=== PATIENT | male | born 1960 | race Caucasian/White ===

== ENCOUNTER 2019-12-27 14:41 | Emergency (ER) | payer SELFPAY ==
[~2019-12-27] VITALS: Ht 188 cm; Wt 127.3 kg
[2019-12-27 15:00] VITALS: BP 159/101
--- NOTE | 2019-12-27 15:10 | NUR ---
Pt. seen, evaluated, and discharged by PA prior to triage and RN intervention.
== END 2019-12-27 15:10 | disposition home or self-care (01) ==
LOC: ER 14:42
DX: U07.1 COVID-19 (principal)
CPT/HCPCS: 36415; 87635; 99283; C9803

== ENCOUNTER 2022-01-29 12:40 | Inpatient (IN) | payer OTHER ==
[~2022-01-29] VITALS: Ht 188 cm; Wt 134.0 kg
[2022-01-29 13:03] LABS: BASOPHILS # (AUTO) 0.1 X10'3 (0-0.2); BASOPHILS % (AUTO) 0.5 % (0-1); EOSINOPHILS # (AUTO) 0.1 X10'3 (0-0.9); EOSINOPHILS % (AUTO) 0.6 % (0-6); HEMATOCRIT 49.7 % (42.0-52.0); HEMOGLOBIN 16.7 g/dl (14.0-17.9); LYMPHOCYTES # (AUTO) 2.3 X10'3 (1.1-4.8); LYMPHOCYTES % (AUTO) 19.9 % (21-51); MEAN CORPUSCULAR HEMOGLOBIN 28.8 PG (27.0-31.0); MEAN CORPUSCULAR HGB CONC 33.5 g/dL (33.0-36.5); MEAN CORPUSCULAR VOLUME 86.1 FL (78-98); MEAN PLATELET VOLUME 8.8 FL (7.4-10.4); MONOCYTES # (AUTO) 1.1 X10'3 (0-0.9); MONOCYTES % (AUTO) 8.9 % (2-12); NEUTROPHILS # (AUTO) 8.3 X10'3 (1.8-7.7); NEUTROPHILS % (AUTO) 70.1 % (42-75); PLATELET COUNT 199 X10'3 (140-440); RED BLOOD COUNT 5.78 X10'6 (4.70-6.10); RED CELL DISTRIBUTION WIDTH 13.7 % (11.5-14.5); WHITE BLOOD COUNT 11.8 X10'3 (4.5-11.0)
--- NOTE | 2022-01-29 13:44 | NUR ---
Lab called with critical lab lenin Olivas
[2022-01-29 14:01] LABS: ALANINE AMINOTRANSFERASE 46 U/L (12-78); ALBUMIN 3.7 G/DL (3.4-5.0); ALBUMIN/GLOBULIN RATIO 0.9 (1.1-1.5); ALKALINE PHOSPHATASE 94 IU/L (46-116); ANION GAP 11 (8-16); ASPARTATE AMINO TRANSFERASE 27 U/L (10-37); BILIRUBIN,TOTAL 0.5 MG/DL (0.1-1.0); BLOOD UREA NITROGEN 16 MG/DL (7-18); BUN/CREATININE RATIO 15.8 (5.4-32.0); CALCIUM 8.5 MG/DL (8.5-10.1); CHLORIDE 100 MMOL/L (99-107); CREATININE 1.01 MG/DL (0.60-1.10); GLUCOSE 227 MG/DL (70-104); MAGNESIUM 2.2 MG/DL (1.5-2.4); POTASSIUM 3.9 MMOL/L (3.5-5.1); SODIUM 136 MMOL/L (135-145); TOTAL CARBON DIOXIDE 24.9 MMOL/L (24-32); TOTAL PROTEIN 7.6 G/DL (6.4-8.2); eGFR 75 ML/MIN
[2022-01-29] MEDS ORDERED: nitroGLYCERIN 0.4mg SUBLingual tab SL PRN (14:10)
[2022-01-29] MEDS ORDERED: metoprolol tartrate 1mg/ml inj IV ONE (14:15)
[2022-01-29] MEDS ORDERED: nitroGLYCERIN 0.4mg/hour patch TD ONE (14:15)
[2022-01-29] MEDS ORDERED: metoprolol tartrate 50mg tablet PO ONE (14:15)
[2022-01-29 15:18] LABS: D-DIMER < 0.19 MG/L FEU (0-0.50)
[2022-01-29] MEDS ORDERED: labetalol 20mg/4ml (5mg/ml) syringe IV ONE (15:45)
[2022-01-29] MEDS ORDERED: NO HOME MEDS (16:51)
[2022-01-29] MEDS ORDERED: PERFLUTREN PROTEIN-A MICROSPHR (Optison) 0.22 MG/ML 3ML VIAL IV ONE (17:10)
[2022-01-29] MEDS ORDERED: magnesium 4gm in 100ml NS 100 ML IV PRN (17:10)
[2022-01-29] MEDS ORDERED: metoprolol tartrate 1mg/ml inj IV PRN (17:10)
[2022-01-29] MEDS ORDERED: potassium Cl 40MEQ/1/2NS 520ml 520 ML IV PRN (17:10)
[2022-01-29] MEDS ORDERED: aminophylline 250mg/10ml inj. IV PRN (17:10)
[2022-01-29] MEDS ORDERED: regadenoson 0.4mg/5ml syringe IV PRN (17:10)
[2022-01-29] MEDS ORDERED: potassium Cl 20 mEq SR tablet PO PRN ×2 (17:10)
[2022-01-29] MEDS ORDERED: ondansetron/PF 4mg/2ml inj IV PRN (17:10)
[2022-01-29] MEDS ORDERED: morphine 2 MG/ML inj. syringe IV PRN ×2 (17:10)
[2022-01-29] MEDS ORDERED: magnesium Cl slow-release 64mg tablet PO PRN (17:10)
[2022-01-29] MEDS ORDERED: mag hydrox/Alum hydrox/simeth 30ml oral suspension PO PRN (17:10)
[2022-01-29] MEDS ORDERED: magnesium hydroxide 30ml (MOM) UD suspension PO PRN (17:10)
[2022-01-29] MEDS: normal saline 1000ml 1,000 ML IV SCH (17:25)
[2022-01-29] MEDS ORDERED: heparin 10,000 units/1 ML INJ IV ONE ×2 (17:25→18:10)
[2022-01-29 18:01] LABS: URINE AMPHETAMINE SCREEN NEGATIVE (Neg); URINE BARBITUATE SCREEN NEGATIVE (Neg); URINE BENZODIAZEPINES SCREEN NEGATIVE (Neg); URINE CANNABINOID SCREEN NEGATIVE (Neg); URINE COCAINE SCREEN NEGATIVE (Neg); URINE METHADONE SCREEN NEGATIVE (Neg); URINE OPIATE SCREEN NEGATIVE (Neg); URINE PHENCYCLIDINE SCREEN NEGATIVE (Neg)
[2022-01-29] MEDS: heparin 25,000 UNIT/250ml bag 250 ML IV PRN (18:26)
[2022-01-29 18:34] LABS: BASOPHILS # (AUTO) 0.1 X10'3 (0-0.2); BASOPHILS % (AUTO) 0.6 % (0-1); EOSINOPHILS % (AUTO) 0.2 % (0-6); LYMPHOCYTES # (AUTO) 1.7 X10'3 (1.1-4.8); LYMPHOCYTES % (AUTO) 14.2 % (21-51); MEAN CORPUSCULAR HEMOGLOBIN 28.9 PG (27.0-31.0); MEAN CORPUSCULAR HGB CONC 33.4 g/dL (33.0-36.5); MEAN CORPUSCULAR VOLUME 86.4 FL (78-98); MEAN PLATELET VOLUME 9.1 FL (7.4-10.4); NEUTROPHILS # (AUTO) 9.4 X10'3 (1.8-7.7); PLATELET COUNT 210 X10'3 (140-440); RED BLOOD COUNT 5.55 X10'6 (4.70-6.10); RED CELL DISTRIBUTION WIDTH 13.8 % (11.5-14.5); WHITE BLOOD COUNT 12.2 X10'3 (4.5-11.0)
[2022-01-29 18:54] LABS: APTT 26 SECONDS (22-32)
[2022-01-29] MEDS: docusate sod 100mg capsule PO SCH (20:00)
[2022-01-29] MEDS: K and/or MAG REPLACEMENT MC SCH (20:00)
[2022-01-29] MEDS: carvedilol 6.25mg tablet PO SCH (20:57)
[2022-01-29] MEDS ORDERED: PERFLUTREN PROTEIN-A MICROSPHR (Optison) 0.22 MG/ML 3ML VIAL IV PRN (21:50)
[2022-01-30] VITALS (23 sets, daily range): BP systolic 109–188; BP diastolic 54–113
[2022-01-30] MEDS ORDERED: heparin, porcine 5000 units/ml vial SQ SCH
--- NOTE | 2022-01-30 | NUR ---
Received pt. awake alert oriented no c/o pain or discomfort. Pt. is on Heparin gtt @1000 u/hr. Second IV started at [facility]. Pt. able to take po liquids and void per urinal with complications. Urine daisy and clear.
[2022-01-30 01:26] LABS: BASOPHILS # (AUTO) 0.1 X10'3 (0-0.2); EOSINOPHILS % (AUTO) 0.5 % (0-6); HEMATOCRIT 41.4 % (42.0-52.0); HEMOGLOBIN 14.4 g/dl (14.0-17.9); LYMPHOCYTES # (AUTO) 2.4 X10'3 (1.1-4.8); LYMPHOCYTES % (AUTO) 25.9 % (21-51); MEAN CORPUSCULAR HEMOGLOBIN 29.9 PG (27.0-31.0); MEAN CORPUSCULAR HGB CONC 34.8 g/dL (33.0-36.5); MONOCYTES # (AUTO) 0.8 X10'3 (0-0.9); MONOCYTES % (AUTO) 9.1 % (2-12); NEUTROPHILS # (AUTO) 5.8 X10'3 (1.8-7.7); NEUTROPHILS % (AUTO) 63.5 % (42-75); PLATELET COUNT 206 X10'3 (140-440); RED BLOOD COUNT 4.81 X10'6 (4.70-6.10); RED CELL DISTRIBUTION WIDTH 13.6 % (11.5-14.5); WHITE BLOOD COUNT 9.2 X10'3 (4.5-11.0)
[2022-01-30 01:33] LABS: ALBUMIN 3.1 G/DL (3.4-5.0); ANION GAP 9 (8-16); BLOOD UREA NITROGEN 20 MG/DL (7-18); BUN/CREATININE RATIO 18.5 (5.4-32.0); CALCIUM 8.1 MG/DL (8.5-10.1); CHLORIDE 102 MMOL/L (99-107); CREATININE 1.08 MG/DL (0.60-1.10); MAGNESIUM 1.9 MG/DL (1.5-2.4); SODIUM 137 MMOL/L (135-145); TOTAL CARBON DIOXIDE 25.8 MMOL/L (24-32); eGFR 70 ML/MIN
[2022-01-30 01:34] LABS: GLUCOSE 234 MG/DL (70-104); POTASSIUM 3.7 MMOL/L (3.5-5.1)
[2022-01-30] MEDS: normal saline 1000ml 1,000 ML IV SCH ×3 (03:10→15:13)
[2022-01-30] MEDS: heparin 10,000 units/1 ML INJ IV PRN ×2 (03:14→09:47)
[2022-01-30] MEDS: heparin 25,000 UNIT/250ml bag 250 ML IV PRN (03:16)
--- NOTE | 2022-01-30 05:00 | NUR ---
Adjusted Heparin accordingly at 3am. Pt. resting quietly until 5am c/o chest discomfort 09/18. BP 188/113 HR 71. EKG done. Placed on 02 2 L NC, Medicated for pain elevated BP and gas pain 07/19 . Tolerated well still c/o pain NTG/SL given x2. Now pt. is pain free. and resting comfortably. BP 146/72 HR 76 Tylenol given for headache after NTG. sl
[2022-01-30] MEDS: hydrALAZINE 20mg/ml inj. IV PRN ×3 (05:05→09:11)
[2022-01-30] MEDS: acetaminophen 325mg tablet PO PRN (05:55)
[2022-01-30] MEDS: nitroGLYCERIN 0.4mg SUBLingual tab SL PRN ×3 (07:55→09:33)
[2022-01-30] MEDS: K and/or MAG REPLACEMENT MC SCH ×2 (08:00→20:00)
[2022-01-30] MEDS: docusate sod 100mg capsule PO SCH ×2 (08:00→19:38)
--- NOTE | 2022-01-30 08:45 | NUR ---
arrived to transport pt to [facility] for stress test, I was notified that patient was actively having chest pain. pt on heparin gtt, at bedside, geologic technician performing ekg. reviewed report tech, primary rn, charge out clerk. Ekg showed changes. Primary RN notified hospitalist, Dr. Connell who was present at nurses station.
[2022-01-30] MEDS ORDERED: nitroGLYCERIN 0.4mg/hour patch TD SCH (08:55)
[2022-01-30] MEDS: carvedilol 6.25mg tablet PO SCH ×2 (09:10→19:38)
[2022-01-30] MEDS: atorvastatin 20mg tablet PO SCH (09:10)
[2022-01-30] MEDS: aspirin 81mg, enteric-coated 1 TAB TABLET.DR PO SCH (09:10)
--- NOTE | 2022-01-30 09:30 | NUR ---
Spoke with Dr Connell regarding CP 10, nonradiating, aching, tele ST segments with BBB. Verbal orders received and placed. S/[facility] and given verbal orders to hold morphine and to administer nitro SL (x2 given). BP monitor added to telemetry and set to Q30min.
[2022-01-30 09:44] LABS: HEMOGLOBIN A1C 8.6 % (4.5-6.2)
[2022-01-30] MEDS ORDERED: nitroGLYCERIN-Tridil 50MG/D5W 250 ML IV SCH (09:50)
--- NOTE | 2022-01-30 11:50 | NUR ---
spoke with primary RN regarding patient status, assisted rn with nitroglycerine gtt and pump. Jacki SMITH, at bedside.
[2022-01-30] MEDS ORDERED: iohexol 350MG/ML 100ml bottle IV ONE (13:13)
[2022-01-30] MEDS ORDERED: midazolam 1 mg/ML 2ml injection ONE (13:13)
[2022-01-30] MEDS ORDERED: fentaNYL/PF 50MCG/1 ML 2ML syringe ONE (13:13)
[2022-01-30] MEDS ORDERED: LIDOcaine 1% 30ml preserv. free vial ONE (13:13)
[2022-01-30] MEDS ORDERED: heparin 1,000unit/ml 10ml vial 10 ML ONE (13:13)
[2022-01-30] MEDS ORDERED: tirofiban 12.5mg in NS 250mL 0 ML IV ONE (13:30)
[2022-01-30] MEDS ORDERED: HEPARIN SOD,PORK IN 0.45% NACL 250 ML IV ONE (13:30)
[2022-01-30] MEDS ORDERED: diphenhydrAMINE 50 mg/ml inj ONE (14:14)
[2022-01-30] MEDS: lisinopril 20mg tablet PO SCH (15:16)
[2022-01-30] MEDS ORDERED: HYDROcodone/acetaminophen 10/325mg tab PO PRN (17:00)
[2022-01-30] MEDS ORDERED: ondansetron/PF 4mg/2ml inj IV PRN ×2 (17:00→17:05)
[2022-01-30] MEDS ORDERED: proCHLORperazine 10 MG/2 ml inj IV PRN (17:00)
[2022-01-30] MEDS ORDERED: normal saline 1000ml 1,000 ML IV SCH (17:00)
[2022-01-30] MEDS ORDERED: OXAZEpam 15mg capsule PO PRN (17:00)
[2022-01-30] MEDS ORDERED: HYDROcodone/acetaminophen 5mg/325mg tablet PO PRN (17:00)
[2022-01-30] MEDS ORDERED: nitroGLYCERIN 0.4mg SUBLingual tab SL PRN (17:00)
--- NOTE | 2022-01-30 18:46 | NUR ---
Pt r femoral dressing from cardiac cath clean, dry and intact upon arrival on unit. Instructed to lay flat until 2100. This RN found upon reassessment after PACU VS complete and found old drainage on 02/12 of bottom right dressing, circled for noc shift to monitor. Placed weight on site and reinforced instructions to lay flat. Pt agreeable.
--- NOTE | 2022-01-30 21:48 | NUR ---
Room 327A Pt. is post procedure day 1 card cath. Pt.is flat in bed with small sandbag weight at site, Dressing is mildly soiled with serosang drainage past the marked area. No c/o pain or discomfort at site. Right foot DP/PT pulses are palpable and equal to left. right hand peripherla IV intact NS infusing. Pt. able to void per urinal yellow clear urine. Pt. is scheduled to out of flat at 9 pm. Pt. c/o low back pain medicated as needed tolerated well states feels much better. 2100 out of flat position sitting up in bed eating pm meal tolerated well. No further complaints.
[2022-01-31 02:15] VITALS: BP 137/77
[2022-01-31] MEDS: acetaminophen 325mg tablet PO PRN (02:47)
[2022-01-31 06:00] VITALS: BP 105/61
[2022-01-31 06:11] LABS: BASOPHILS % (AUTO) 0.4 % (0-1); EOSINOPHILS # (AUTO) 0.1 X10'3 (0-0.9); EOSINOPHILS % (AUTO) 0.9 % (0-6); HEMATOCRIT 40.5 % (42.0-52.0); HEMOGLOBIN 13.7 g/dl (14.0-17.9); LYMPHOCYTES # (AUTO) 2.2 X10'3 (1.1-4.8); LYMPHOCYTES % (AUTO) 26.9 % (21-51); MEAN CORPUSCULAR HEMOGLOBIN 29.5 PG (27.0-31.0); MEAN CORPUSCULAR HGB CONC 33.9 g/dL (33.0-36.5); MEAN CORPUSCULAR VOLUME 86.9 FL (78-98); MONOCYTES # (AUTO) 0.9 X10'3 (0-0.9); MONOCYTES % (AUTO) 11.4 % (2-12); NEUTROPHILS % (AUTO) 60.4 % (42-75); PLATELET COUNT 186 X10'3 (140-440); RED BLOOD COUNT 4.66 X10'6 (4.70-6.10); RED CELL DISTRIBUTION WIDTH 13.6 % (11.5-14.5); WHITE BLOOD COUNT 8.3 X10'3 (4.5-11.0)
[2022-01-31] MEDS ORDERED: HYDROcodone/acetaminophen 5mg/325mg tablet PO PRN (06:30)
[2022-01-31] MEDS ORDERED: HYDROcodone/acetaminophen 10/325mg tab PO PRN (06:30)
[2022-01-31] MEDS ORDERED: proCHLORperazine 10 MG/2 ml inj IV PRN (06:30)
[2022-01-31] MEDS ORDERED: OXAZEpam 15mg capsule PO PRN (06:30)
[2022-01-31] MEDS ORDERED: normal saline 1000ml 1,000 ML IV SCH (06:30)
[2022-01-31] MEDS ORDERED: ondansetron/PF 4mg/2ml inj IV PRN (06:30)
[2022-01-31] MEDS ORDERED: nitroGLYCERIN 0.4mg SUBLingual tab SL PRN (06:30)
[2022-01-31 06:47] LABS: ALBUMIN 2.9 G/DL (3.4-5.0); ANION GAP 6 (8-16); BLOOD UREA NITROGEN 22 MG/DL (7-18); BUN/CREATININE RATIO 19.8 (5.4-32.0); CALCIUM 8.3 MG/DL (8.5-10.1); CHLORIDE 104 MMOL/L (99-107); CHOLESTEROL 169 MG/DL (0-200); CREATININE 1.11 MG/DL (0.60-1.10); GLUCOSE 210 MG/DL (70-104); HDL CHOLESTEROL 34 MG/DL (35-60); LDL CHOLESTEROL 87 MG/DL (50-100); MAGNESIUM 2.3 MG/DL (1.5-2.4); POTASSIUM 4.1 MMOL/L (3.5-5.1); SODIUM 136 MMOL/L (135-145); TOTAL CARBON DIOXIDE 26.3 MMOL/L (24-32); TRIGLYCERIDES 253 MG/DL (20-135); eGFR 68 ML/MIN
[2022-01-31] MEDS: K and/or MAG REPLACEMENT MC SCH (08:00)
[2022-01-31] MEDS ORDERED: MESSAGE TO PHARMACY PO ONE (08:55)
[2022-01-31 09:08] VITALS: BP 119/78
[2022-01-31] MEDS: atorvastatin 20mg tablet PO SCH (09:10)
[2022-01-31] MEDS: normal saline 1000ml 1,000 ML IV SCH (09:10)
[2022-01-31] MEDS: aspirin 81mg, enteric-coated 1 TAB TABLET.DR PO SCH (09:10)
[2022-01-31] MEDS: lisinopril 20mg tablet PO SCH (09:11)
[2022-01-31] MEDS: carvedilol 6.25mg tablet PO SCH (09:12)
[2022-01-31] MEDS: docusate sod 100mg capsule PO SCH (09:13)
[2022-01-31] MEDS ORDERED: LISI10TA27 PO (10:46)
[2022-01-31] MEDS ORDERED: ASPI81TA52 PO (10:46)
[2022-01-31] MEDS ORDERED: METF-436 PO (10:46)
[2022-01-31] MEDS ORDERED: CARV3.12 PO (10:46)
[2022-01-31] MEDS ORDERED: GLIP5TAB13 PO (10:46)
[2022-01-31 11:00] VITALS: BP 111/75
--- NOTE | 2022-01-31 12:38 | NUR ---
Noted pt with newly diagnosed DM, current A1c 8.6%. Pt and SO seen at bedside provided with written DM education with thorough verbal review. Pt asked questions throughout education and was very receptive to information provided. All of patient's questions were answered at this time. RD contact information provided including contact information for outpatient RD. Pt endorses a good appetite and denies food allergies, difficulty chewing/swallowing, or constipation/diarrhea. Pt pending discharge at this time. Will remain available. Addendum: 01/31/22 at [address] Amended: Links added.
--- NOTE | 2022-01-31 13:04 | NUR ---
d/c delayed d/t offal roller education re: new onset diabetes
--- NOTE | 2022-01-31 13:25 | NUR ---
pt stable for d/c Rev'd all d/c ppwk with patient and patient spouse. Education provided on IS, DM, HTN, chest pain, ect and all questions, comments and concerns answered at this time. All personal belongings were sent with patient. New RX sent to pharmacy. Cristel GOMEZ gave them her card in case of any questions. Supervisor [employer] was in before me and educated on diet. Pt wanted to walk out with . Offered w/c but he declined. He also refused BG check as he was in a hurry. Addendum: 01/31/22 at 1330 by Sunitha Diaz RN PIV's removed x 2 and pt tolerated well. Tele box was removed and returned to [facility] monitor.
[2022-02-01] MEDS ORDERED: dextrose 50%-water 50ml dispensing syringe IV PRN ×2 (08:00)
[2022-02-01] MEDS ORDERED: glucagon, human recombinant 1mg kit SUBCUT PRN (08:00)
[2022-02-01] MEDS ORDERED: DEXTROSE 15 GM of carb/4 tabs (each vial/BOTTLE has 4 tablets) PO PRN ×2 (08:00)
[2022-02-01] MEDS ORDERED: insulin Lispro (HumaLOG) vial - multi-dose SQ SCH (08:55)
[2022-02-01] MEDS ORDERED: insulin glargine (Lantus) pen - multi-dose SQ SCH (21:00)
== END 2022-01-31 13:02 | disposition home or self-care (01) | DRG 281 ==
LOC: ER 12:40 → ED HOLD 17:14 → PCU 3S 22:55
PROVIDERS: ADMIT Family Medicine; ATTEND Family Medicine
PROC: 4A023N7 Measurement of Cardiac Sampling and Pressure, Left Heart, Percutaneous Approach (ICD-10-PCS; principal; 2022-01-30)
PROC: B2111ZZ Fluoroscopy of Multiple Coronary Arteries using Low Osmolar Contrast (ICD-10-PCS; 2022-01-30)
PROC: B2151ZZ Fluoroscopy of Left Heart using Low Osmolar Contrast (ICD-10-PCS; 2022-01-30)
DX: I21.4 Non-ST elevation (NSTEMI) myocardial infarction (principal); J98.11 Atelectasis; E66.9 Obesity, unspecified; Z20.822 Contact with and (suspected) exposure to COVID-19; E11.65 Type 2 diabetes mellitus with hyperglycemia; E78.00 Pure hypercholesterolemia, unspecified; G47.30 Sleep apnea, unspecified; I20.9 Angina pectoris, unspecified; I10 Essential (primary) hypertension; I45.10 Unspecified right bundle-branch block; M25.471 Effusion, right ankle; M25.472 Effusion, left ankle; R53.81 Other malaise; Z68.37 Body mass index [BMI] 37.0-37.9, adult; Z86.16 Personal history of COVID-19
CPT/HCPCS: 36415; 71045; 71250; 80048; 80053; 80061; 80305; 82948; 83036; 83735; 83880; 84484; 85025; 85379; 85610; 85730; 87081; 87635; 93005; 93306; 93458; 96374; 96375; 99152; 99153; 99285; A6258; C1760; C1769; C9803; G0378; J0360; J1200; J1644; J1815; J2250; J2270; J3010; J3246; J3490; J7030; Q9967

== ENCOUNTER 2022-03-21 13:41 | Emergency (ER) | payer OTHER ==
[~2022-03-21] VITALS: Ht 188 cm; Wt 123.0 kg
[~2022-03-21 13:41] MED LIST: CARV3.12 PO; GLIP5TAB13 PO; LISI10TA27 PO; METF-436 PO
[2022-03-21 14:01] LABS: BASOPHILS # (AUTO) 0.1 X10'3 (0-0.2); BASOPHILS % (AUTO) 0.5 % (0-1); EOSINOPHILS # (AUTO) 0.1 X10'3 (0-0.9); EOSINOPHILS % (AUTO) 0.5 % (0-6); HEMATOCRIT 39.7 % (42.0-52.0); HEMOGLOBIN 13.1 g/dl (14.0-17.9); LYMPHOCYTES # (AUTO) 2.1 X10'3 (1.1-4.8); LYMPHOCYTES % (AUTO) 16.9 % (21-51); MEAN CORPUSCULAR HEMOGLOBIN 28.2 PG (27.0-31.0); MEAN CORPUSCULAR HGB CONC 32.9 g/dL (33.0-36.5); MEAN CORPUSCULAR VOLUME 85.6 FL (78-98); MEAN PLATELET VOLUME 8.1 FL (7.4-10.4); MONOCYTES # (AUTO) 1.6 X10'3 (0-0.9); MONOCYTES % (AUTO) 13.2 % (2-12); NEUTROPHILS # (AUTO) 8.4 X10'3 (1.8-7.7); NEUTROPHILS % (AUTO) 68.9 % (42-75); PLATELET COUNT 351 X10'3 (140-440); RED BLOOD COUNT 4.63 X10'6 (4.70-6.10); RED CELL DISTRIBUTION WIDTH 14.2 % (11.5-14.5); WHITE BLOOD COUNT 12.2 X10'3 (4.5-11.0)
[2022-03-21 14:20] LABS: ALANINE AMINOTRANSFERASE 20 U/L (12-78); ALBUMIN 3.3 G/DL (3.4-5.0); ALBUMIN/GLOBULIN RATIO 0.8 (1.1-1.5); ALKALINE PHOSPHATASE 63 IU/L (46-116); ANION GAP 10 (8-16); ASPARTATE AMINO TRANSFERASE 14 U/L (10-37); BILIRUBIN,TOTAL 0.4 MG/DL (0.1-1.0); BLOOD UREA NITROGEN 21 MG/DL (7-18); BUN/CREATININE RATIO 20.8 (5.4-32.0); CALCIUM 9.2 MG/DL (8.5-10.1); CHLORIDE 100 MMOL/L (99-107); CREATININE 1.01 MG/DL (0.60-1.10); GLUCOSE 113 MG/DL (70-104); POTASSIUM 4.2 MMOL/L (3.5-5.1); SODIUM 135 MMOL/L (135-145); TOTAL CARBON DIOXIDE 24.8 MMOL/L (24-32); TOTAL PROTEIN 7.5 G/DL (6.4-8.2); eGFR 75 ML/MIN
[2022-03-21 14:26] LABS: MAGNESIUM 2.2 MG/DL (1.5-2.4)
[2022-03-21] MEDS ORDERED: iohexol 350MG/ML 100ml bottle IV ONE (18:42)
[2022-03-21 18:46] VITALS: BP 134/87
--- NOTE | 2022-03-21 19:04 | NUR ---
VERIFIED RECOVERY RN GENERAL ASESSMENT
== END 2022-03-21 20:50 | disposition home or self-care (01) ==
LOC: ER 13:42
DX: I31.39 Other pericardial effusion (noninflammatory) (principal)
CPT/HCPCS: 36415; 71045; 71275; 80053; 83735; 83880; 84484; 85025; 93005; 93882; 99285; J3490; Q9967

== ENCOUNTER 2023-03-29 14:43 | Emergency (ER) | payer BC ==
[~2023-03-29] VITALS: Ht 188 cm; Wt 129.6 kg
[~2023-03-29 14:43] MED LIST changes: -GLIP5TAB13 PO; +GLIP5TAB23 PO
[2023-03-29 15:17] LABS: BASOPHILS % (AUTO) 0.5 % (0-1); EOSINOPHILS # (AUTO) 0.1 X10'3 (0-0.9); EOSINOPHILS % (AUTO) 1.9 % (0-6); HEMATOCRIT 45.4 % (42.0-52.0); HEMOGLOBIN 14.8 g/dl (14.0-17.9); LYMPHOCYTES # (AUTO) 2.3 X10'3 (1.1-4.8); LYMPHOCYTES % (AUTO) 31.2 % (21-51); MEAN CORPUSCULAR HEMOGLOBIN 28.8 PG (27.0-31.0); MEAN CORPUSCULAR HGB CONC 32.6 g/dL (33.0-36.5); MEAN CORPUSCULAR VOLUME 88.4 FL (78-98); MEAN PLATELET VOLUME 9.5 FL (7.4-10.4); MONOCYTES # (AUTO) 0.8 X10'3 (0-0.9); MONOCYTES % (AUTO) 10.6 % (2-12); NEUTROPHILS # (AUTO) 4.1 X10'3 (1.8-7.7); NEUTROPHILS % (AUTO) 55.8 % (42-75); PLATELET COUNT 170 X10'3 (140-440); RED BLOOD COUNT 5.14 X10'6 (4.70-6.10); RED CELL DISTRIBUTION WIDTH 14.3 % (11.5-14.5); WHITE BLOOD COUNT 7.3 X10'3 (4.5-11.0)
[2023-03-29 15:31] LABS: ALANINE AMINOTRANSFERASE 52 U/L (12-78); ALBUMIN 3.9 G/DL (3.4-5.0); ALBUMIN/GLOBULIN RATIO 1.1 (1.1-1.5); ALKALINE PHOSPHATASE 69 IU/L (46-116); ANION GAP 5 (8-16); ASPARTATE AMINO TRANSFERASE 35 U/L (10-37); BILIRUBIN,TOTAL 0.5 MG/DL (0.1-1.0); BLOOD UREA NITROGEN 24 MG/DL (7-18); BUN/CREATININE RATIO 23.5 (10.0-20.0); CALCIUM 8.5 MG/DL (8.5-10.1); CHLORIDE 107 MMOL/L (99-107); CREATININE 1.02 MG/DL (0.60-1.10); GLUCOSE 93 MG/DL (70-104); POTASSIUM 4.2 MMOL/L (3.5-5.1); SODIUM 142 MMOL/L (135-145); TOTAL CARBON DIOXIDE 29.6 MMOL/L (24-32); TOTAL PROTEIN 7.5 G/DL (6.4-8.2); eCRCL 88 ML/MIN; eGFR 74 ML/MIN
[2023-03-29 15:39] LABS: LIPASE 151 U/L (16-77); MAGNESIUM 2.5 MG/DL (1.5-2.4); PRO BRAIN NATRIURETIC PEPTIDE 542 PG/ML (0-125)
[2023-03-29] MEDS ORDERED: iohexol 350MG/ML 100ml bottle IV ONE (16:44)
[2023-03-29 20:49] VITALS: BP 141/81; PULSE 72; RESP 16; TEMP 98; O2SAT 98
== END 2023-03-29 20:52 | disposition home or self-care (01) ==
LOC: ER 14:43
DX: R07.89 Other chest pain (principal); I50.9 Heart failure, unspecified; Z79.899 Other long term (current) drug therapy
CPT/HCPCS: 36415; 70450; 70496; 70498; 71045; 80053; 83690; 83735; 83880; 84484; 85025; 93005; 99285; J3490; Q9967

== ENCOUNTER 2024-11-11 12:21 | Emergency (ER) | payer BC ==
[~2024-11-11] VITALS: Ht 188 cm; Wt 136.9 kg
[2024-11-11 12:24] VITALS: TEMP 97.3
[2024-11-11 12:39] LABS: MEAN PLATELET VOLUME 8.8 FL (7.4-10.4); RED CELL DISTRIBUTION WIDTH 14.9 % (11.5-14.5)
[2024-11-11 12:51] LABS: CREATININE 1.08 MG/DL (0.60-1.10); TOTAL CARBON DIOXIDE 28.6 MMOL/L (24-32); eCRCL 81 ML/MIN; eGFR 69 ML/MIN
[2024-11-11 12:53] LABS: APTT 27 SECONDS (22-32); INR 1.0 INR
--- NOTE | 2024-11-11 12:54 | RADIOLOGY REPORT ---
CT CT STROKE ALERT Indication: Stroke Alert EXAM DATE: 11/11/2024 12:28 PM COMPARISON: CT CT HEAD on DOS: 03/29/23 TECHNIQUE: CT of the head without intravenous contrast. RADIATION DOSE: CTDIvol: 67 mGy, DLP: 1285 mGy*cm FINDINGS: There is no intracranial hemorrhage. There is no extra-axial fluid, mass, mass effect or midline shift. The ventricles are midline and normal in size. Basilar cisterns are patent. Sun-white differentiation is maintained. The paranasal sinuses and mastoids are well-pneumatized. Imaged portion of the orbits are unremarkable. IMPRESSION: No intracranial hemorrhage or mass effect.
--- NOTE | 2024-11-11 13:01 | RADIOLOGY REPORT ---
DI CHEST,SINGLE VIEW, HISTORY: Stroke Alert COMPARISON: DI CHEST,SINGLE VIEW on DOS: 03/29/23, CTA CHEST on DOS: 03/21/22, CHEST,SINGLE VIEW on DOS: 03/21/22 DI CHEST,SINGLE VIEW on DOS: 03/29/23, CTA CHEST on DOS: 03/21/22, CHEST,SINGLE VIEW on DOS: 03/21/22 TECHNICAL DATA: 1 view of the chest was obtained. FINDINGS: Lines and tubes: None Cardiomediastinal silhouette: normal Pulmonary vasculature: normal Lung expansion: normal Lung airspace: normal Lung interstitium: normal Pleura: normal Pneumothorax: no Bones: Unremarkable Other: no IMPRESSION: No acute intrathoracic abnormality.
--- NOTE | 2024-11-11 13:11 | RADIOLOGY REPORT ---
EXAM: CT CTA NECK/HEAD DATE OF SERVICE: 11/11/2024 12:34 PM ORDERING PHYSICIAN: JULIETA RAMOS REASON FOR EXAM: left facial drooping TECHNIQUE: CTA of the brain and neck was performed after the administration of contrast . Axial images of the head and neck are obtained. Coronal and sagittal images were then reformatted for review. MIP reformats were obtained and reviewed. COMPARISON: CT head from today FINDINGS: FINDINGS: The right common carotid artery demonstrates no high-grade stenosis. Mild calcification of the right carotid bulb.. Right internal carotid artery demonstrates no high-grade stenosis. Right middle cerebral artery demonstrates no high-grade stenosis. The right anterior cerebral artery demonstrates no high-grade stenosis. The left common carotid artery demonstrates no high-grade stenosis. Mild calcification of the left carotid bulb. Left internal carotid artery demonstrates no high-grade stenosis. The left middle cerebral artery demonstrates no high-grade stenosis. The left anterior cerebral artery demonstrates no high-grade stenosis. The right vertebral artery demonstrates no high-grade stenosis. The left vertebral artery demonstrates no high-grade stenosis. The left vertebral artery is dominant.45 Basilar artery demonstrates no high-grade stenosis. The bilateral posterior cerebral arteries demonstrate no high-grade stenosis. There is moderate cervical degenerative disc disease. IMPRESSION: No large vessel high-grade stenosis. Other findings as described.
--- NOTE | 2024-11-11 13:12 | Physician Documentation ---
History of Present Illness ~ Chief Complaint: Stroke Alert Stated Complaint: FACIAL DROOPING Time Seen by MD: 12:32 Primary Medical Doctor: NONE HPI 64-year-old male patient with a history of diabetes and hypertension came to the emergency room because of left facial paresthesia since 11 a.m.. During the last two days has been experiencing some unusual sensation in the left side of the face. At the triage I saw him and I think is probably Strong's palsy. At that time stroke alert level one was already initiated and I wanted to prove myself so I said okay with the stroke alert. The patient is ambulatory and speak well. Medication Reconciliation Allergies: Coded Allergies: No Known Allergies (Unverified , 03/29/23) Scheduled Carvedilol (Coreg), 1 TAB PO Q12H Glipizide (Glipizide), 1 TAB PO Q12H Lisinopril (Lisinopril), 10 MG PO DAILY Metformin Hcl (Metformin Hcl), 1 TAB PO Q12H Past Medical History Past Medical History: No Pertinent History Past Surgical History: no surgical history Alcohol Use: Occasionally Drug Use: none Lives with: Spouse Lives In: Home Occupation: employed Review of Systems ROS As stated above in the HPI, otherwise all systems are reviewed and negative. Physical Exam Vital Signs: Temperature: 97.3, Source: Temporal, Heart Rate: 60, Respiratory Rate: 16, BP: 202/85, Pulse Oximetry: 99, Weight: 136.900 Oxygen Flow Rate: 0 General Appearance Reviewed vital signs and they are well within normal range except for high blood pressure. Const: Acute distress but a little bit anxious Head: Atraumatic Eyes: Normal Conjunctiva ENT: Normal External Ears, Nose and Mouth. Moist mucous membranes Neck: Full range of motion. No meningismus Resp: Clear to auscultation bilaterally. Normal work of breathing Cardio: Regular rate and rhythm, no murmurs. Skin well perfused, heart rate 60 regular Abd: Soft, non-tender, non-distended. Normal bowel sounds. No rebound or guarding Skin: No petechiae or rashes. Warm and dry Back: No midline or flank tenderness Ext: No cyanosis, or edema Neuro: Awake and alert Left facial weakness with ability do close the left eye almost complete. No other deficit. Psych: Normal Mood and Affect Progress Results/Orders Results/Orders Orders - JULIETA RAMOS MD Monitor (11/11/24 12:25) 2 Large Bore Ivs (11/11/24 12:25) Electrocardiogram (11/11/24 12:25) Chest,Single View (11/11/24 12:25) Accucheck (11/11/24 12:25) Ct Stroke Alert (11/11/24 12:36) Rover Prov.Neuro Consult (11/11/24 12:25) Cta Neck/Head (11/11/24 12:43) Completed Orders - JULIETA RAMOS MD Cbc/Diff (11/11/24 12:25) Chest,Single View (11/11/24 12:25) Ct Stroke Alert (11/11/24 12:36) BMP (11/11/24 12:25) PTT (11/11/24 12:25) Pt Inr (11/11/24 12:25) Cta Neck/Head (11/11/24 12:43) Iohexol 350mg/Ml 100ml (Omnipaque 350mg/ (11/11/24 12:34) Prednisone Tablet (Prednisone Tablet) (11/11/24 13:00) Vital Signs 11/11/24 12:24 Temp 97.3 Pulse 60 Resp 16 B/P (MAP) 202/85 Pulse Ox 99 O2 Flow Rate 0 Laboratory Tests Test 11/11/24 12:29 11/11/24 12:32 Glucometer 141 H White Blood Count 7.0 Red Blood Count 5.43 Hemoglobin 16.2 Hematocrit 46.4 Mean Corpuscular Volume 85.5 Mean Corpuscular Hemoglobin 29.9 Mean Corpuscular Hemoglobin Concent 34.9 Red Cell Distribution Width 14.9 H Platelet Count 175 Mean Platelet Volume 8.8 Neutrophils (%) (Auto) 49.1 Lymphocytes (%) (Auto) 37.5 Monocytes (%) (Auto) 10.8 Eosinophils (%) (Auto) 1.7 Basophils (%) (Auto) 0.9 Neutrophils # (Auto) 3.4 Lymphocytes # (Auto) 2.6 Monocytes # (Auto) 0.8 Eosinophils # (Auto) 0.1 Basophils # (Auto) 0.1 CBC Comment Prothrombin Time 10.4 INR International Normalized Ratio 1.0 Activated Partial Thromboplast Time 27 Coagulation Comments Sodium Level 140 Potassium Level 4.0 Chloride Level 105 Carbon Dioxide Level 28.6 Anion Gap 6 L Blood Urea Nitrogen 24 H Creatinine 1.08 Estimated GFR/1.73 m2 69 BUN/Creatinine Ratio 22.2 H Glucose Level 135 H Calcium Level 8.9 Albumin 4.0 Chemistry Comments Medical Decision Making Findings ER Course/Med. Decision Making REVIEW of RECORD(S): Previous medical records here and/or external medical records, such as that provided directly by the patient, by EMS and/or outside medical facilities, if available, were reviewed. COMORBIDITIES diabetes and hypertension MDM During the physical examination, the findings suggestive of acute life- threatening condition such as JVD, tracheal deviation, acidotic breathing, noisy stridorous breath sounds, pulses paradoxus, muffled heart sounds, unequal breath sounds, abdominal rigidity and rebound tenderness, focal neurological deficits, cool clammy skin, severe hypotension, severe tachycardia or bradycardia are absent. Patient presenting for . Vital signs reviewed. Patient is hemodynamically stable and does not meet SIRS criteria. Patient appears nontoxic on exam. Ruben aissatou examination was done and the neurologist agreed with the diagnosis of strong palsy. Start alert was canceled. TREATMENT/DISPOSITION: The patient's presentation is most consistent with Prior to discharge I independently reviewed the patients past medical history, clinical risk factors, comorbidities, and social determinants of health and diagnostic studies. The patient appears to be a safe discharge home with close outpatient PCP follow-up I had extensive discussion with patient regarding management, disposition and follow up. Potential symptom etiology was discussed, and shared decision making occurred. They will return immediately if symptoms worsen, do not improve, or they have any further concerns. Prior to discharge all questions were addressed. The patient is aware that the purpose of this visit was to screen for an acute medical emergency requiring emergent stabilization. Chronic and occult conditions, including malignancies, have not been ruled out. If patient is unable to arrange follow-up as stated in the discharge instructions and further discussed with the patient directly, or their symptoms worsen/become more concerning, they are to return to the ER for reassessment immediately. Prior to leaving the department, the patient has a plan for discharge, has decision making capacity, and acknowledges an understanding of the verbal and written discharge instructions. SOCIAL DETERMINANTS: Patient demonstrates no obvious challenges to following up as an outpatient although did consider whether patient had any barriers to access care including homelessness, Food insecurity, Mental health, Substance abuse, Disabilities, Limited access to medical care, Difficulty finding [place], Insurance issues, Refusal of care or testing due to cost concerns. MEDICAL SCREENING: I have discussed with the patient the non-definitive nature of the emergency screening exam, diagnosis and the possibility of a variety of conditions which may present in atypically benign fashion and stressed the importance of close follow-up for definitive diagnosis and treatment. We discussed signs and symptoms that should be watched for which might indicate a more serious or new condition that would benefit from emergency reevaluation and the patient has verbalized understanding to this and my other detailed discharge instructions and promises compliance. I have referred him back to his primary physician of course for a more detailed evaluation and more definitive diagnoses. DISCLAIMER: Inadvertent spelling and grammatical errors are likely due to EMR/dictation software use and do not reflect on the overall quality of patient care. Note that the electronic time recorded on this note does not necessarily reflect the actual time of the patient encounter. Departure Disposition: 01 HOME / SELF CARE / HOMELESS Impression: Primary Impression: Left-sided Strong's palsy Condition: Stable Discharge Instructions: Strong's Palsy, Adult, Stroke Prevention, [id number] Additional Instructions: Thank you for coming to our Emergency Department today. Please do facial physical therapy by yourself and make sure that you can close your eyes fully at night and if you can not before you sleep put the tape to close the eye. With the physical therapy and medication it will get better so it is important that you do facial physical therapy diligently. While you are on prednisone I want you to double the lisinopril take 20 instead of 10 daily. Please ask your nurse or provider if you have questions about your care today and do not leave until all your questions have been answered. Please use any medications given as directed and follow-up with your doctor (or the doctor you were referred to) in the next 1-3 days. Your primary care doctor can help to coordinate outpatient specialty care and provide authorization for specialty referral as needed. If you do not have a primary care doctor you may follow up at a [facility]. You may also use motrin and tylenol as needed for fever and/or pain unless instructed otherwise by your provider or nurse. Indications for more urgent follow-up have been discussed, but you may return to the Emergency Department at ANY time for any worrisome or worsening symptoms. County Facilities: [facility] Facilities: [facility]: [facility] [place] Address:[address] [place] [address] [facility]: [place] Address:[address] [place] [address] [facility]: Telemedicine Address:[address] [place] [address] [facility] Address:[address] [place] [address] Registration Billing Pharmacy Referrals [facility] Address:[address] [place] [address] Referrals: NO PRIMARY CARE PROVIDER (PCP) Prescriptions Prednisone (Prednisone) 10 Mg Tablet 1 TABLET PO DAILY, #36 TABLET Take six tablets with breakfast for another four days. Then take 4 tablets with breakfast for 1 day Then 3 1 2 1 1 2 then stop. While you are on prednisone make sure that you follow the diet instructions because it can increase blood sugar and also increase the blood pressure. Low-salt diet. Prov: JULIETA RAMOS MD 11/11/24 Signature Scribe Signature: x Attestation: JULIETA Tomas MD Nov 11, 2024 13:12
--- NOTE | 2024-11-11 13:16 | ELECTROCARDIOGRAPH REPORT ---
[facility] Test Date: 2024-11-11 Test Time: 13:13:35 Pat Name: MARIE BEE Department: EMERGENCY ROOM Room: Gender: M Digital Engineer: MILLIE : 1960 Requested By: JULIETA RAMOS Order Number: [id number] Reading MD: Dr. Manny Liu Measurements Intervals Pearl Rate: 69 P: 11 MN: 186 QRS: 22 QRSD: 169 T: 32 QT: 450 QTc: 482 Interpretive Statements Sinus rhythm Multiple ventricular premature complexes Right bundle branch block Electronically Signed On 11-11-2024 20:30:[address] Manny Liu Please click the below link to view image of tracing.
[2024-11-11] MEDS ORDERED: PRED10TA23 PO (13:21)
--- NOTE | 2024-11-11 13:39 | CONSULTATION REPORT ---
History of Present Illness Providers to CC ~ Refering MD: NONE Allergies: Coded Allergies: No Known Allergies (Unverified , 03/29/23) Home Medications Home Medications Active Prednisone 10 Mg Tablet 1 Tablet PO DAILY Take six tablets with breakfast for another four days. Then take 4 tablets with breakfast for 1 day Then 3 1 2 1 1 2 then stop. While you are on prednisone make sure that you follow the diet instructions because it can increase blood sugar and also increase the blood pressure. Low-salt diet. Coreg (Carvedilol) 3.125 Mg Tablet 1 Tab PO Q12H 30 Days Lisinopril 10 Mg Tablet 10 Mg PO DAILY Glipizide 5 Mg Tablet 1 Tab PO Q12H 30 Days Metformin Hcl 500 Mg Tablet 1 Tab PO Q12H 30 Days Physical Exam Last Vital Signs Recorded: Temperature: 97.3, Source: Temporal, Heart Rate: 72, Respiratory Rate: 10, BP: 170/101, Pulse Oximetry: 97, Weight: 136.900 Results Diagram Lab Result Diagram: 11/11/24 1232 11/11/24 1232 Assessment/Plan Additional Plan [place] [facility] Note # Demographics Consult Type: Acute Stroke Level 1 (0-4.5 hrs) Patient Location: Emergency Room First Name: Juan Last Name: Emanuel Date of : 1960 Age: 64 Gender: Male Facility: [facility] Time of Initial Page (): 11/11/2024 12:51 First Contact with Site ( Time): 11/11/2024 12:52 # HPI Chief Complaint: - weakness (focal) History: 64 y/o M presents with left facial weakness and tingling. Onset approx 2 hours ago. Does have pain by the left ear for a couple days. Today maybe a little tingling of the left arm but "very little." # Scores Time of exam and NIHSS (): 11/11/2024 12:54 Level of Consciousness 1a: [0] = Alert; keenly responsive LOC Questions 1b: [0] = Answers both questions correctly LOC Commands 1c: [0] = Performs both tasks correctly Best Gaze 2: [0] = Normal Visual 3: [0] = No visual loss Facial Palsy 4: [2] = Partial paralysis Motor Arm Left 5a: [0] = No drift Motor Arm Right 5b: [0] = No drift Motor Leg Left 6a: [0] = No drift Motor Leg Right 6b: [0] = No drift Limb Ataxia 7: [0] = Absent Sensory 8: [0] = Normal Best Language 9: [0] = No aphasia Dysarthria 10: [0] = Normal Extinction and Inattention 11: [0] = No abnormality NIHSS Total: 2 # Data Head CT: - no bleed - per radiologist read CTA Head: - no large vessel occlusion - per radiologist read # Assessment Impression: - [place] Palsy # Plan Thrombolytic/Intervention: NOT IV Thrombolysis or IA Intervention candidate Thrombolytic/Intraarterial Exclusion: - IV thrombolytic and IA intervention considered but not recommended as this patient's symptoms are not clinically consistent with an assumed diagnosis of stroke Other: - If patient has any neurological deterioration please call me back immediately - I have discussed my recommendations with the referring provider Additional Recommendations: Empiric treatment for Strong's palsy with steroid and anti-viral for 7 days. # Logistics Attestation of consult completion: The patient is located at: [facility]. Facility staff participated in the visit. I performed this telemedicine visit from my offsite office utilizing interactive 2 way audio and visual telecommunication technology at the request of the onsite emergency room provider. Total time spent in telemedicine encounter: I spent 15 minutes reviewing clinical data and/or imaging, obtaining history, examining the patient, communicating with the onsite care team, and in preparation of this report. # Demographics First Name: Juan Last Name: Emanuel Facility: [facility] COOPER HAJI MD Nov 11, 2024 13:39
[2024-11-11 14:05] VITALS: BP 147/92
[2024-11-11 14:56] VITALS: PULSE 74; RESP 16; O2SAT 97
== END 2024-11-11 14:25 | disposition home or self-care (01) ==
LOC: ER 12:21
DX: G51.0 Bell's palsy (principal); R06.02 Shortness of breath; E11.9 Type 2 diabetes mellitus without complications; I10 Essential (primary) hypertension
CPT/HCPCS: 36415; 70450; 70496; 70498; 71045; 80048; 82948; 85025; 85610; 85730; 93005; 99285; J7512; Q9967